=== PATIENT | male | born 1975 | race Caucasian/White ===

== ENCOUNTER → 2017-09-29 | Outpatient (CLI) | payer BC ==
--- NOTE | 2017-09-29 10:45 | DIAGNOSTIC IMAGING REPORT ---
RIGHT ANKLE 3 VIEWS HISTORY: RIGHT ANKLE PAIN COMPARISON: None. FINDINGS: There is no fracture or dislocation. Mild anterior soft tissue swelling. Focal calcification at the posterior calcaneus at the Achilles insertion. Cartilage spaces are maintained. No radiopaque foreign bodies. IMPRESSION: No fractures. Mild anterior soft tissue swelling. Electronically signed by: Choco Urbina M.D. 09/29/2017 10:44 AM Dictated Date/Time: 09/29/2017 10:43 AM
== END | disposition home or self-care (01) ==
LOC: C.RDSM 13:19
PROVIDERS: ATTEND Internal Medicine
DX: M25.571 Pain in right ankle and joints of right foot (principal); M79.89 Other specified soft tissue disorders